=== PATIENT | male | born 1965 | race Caucasian/White ===

== ENCOUNTER 2018-01-24 14:47 | Inpatient (IN) | payer OTHER ==
[~2018-01-24] VITALS: Ht 177.8 cm; Wt 68.0 kg
--- NOTE | 2018-01-24 15:20 | NUR ---
PRE-ADMISSION Pt is a 52 yr old male, AA&Ox4. Pt is presenting himself to [facility] for [place] and Oxycotin use. Pt states of using 200mg PO of [place] prior to admission. Pt is currently intoxicated. No withdrawal is noted at this time. VS are BP125/68, P 71, R 16, O2 96%. Pt denies any pain at the moment. Pt was seen and examined by Dr. Weems. Pt will be admitted onto the 3rd floor.
[2018-01-24 15:23] VITALS: BP 125/68
[2018-01-24] MEDS ORDERED: CELE200C PO (15:55)
[2018-01-24] MEDS ORDERED: ROSU10TA PO (15:56)
[2018-01-24] MEDS ORDERED: MAG HYDROX/AL HYDROX/SIMETH 30 ML LIQUID UDC PO PRN (16:30)
[2018-01-24] MEDS ORDERED: MIRALAX 17 GM POWD.PACK PO PRN (16:30)
[2018-01-24] MEDS ORDERED: ONDANSETRON 4 MG/2 ML VIAL IM PRN (16:30)
[2018-01-24] MEDS ORDERED: ACETAMINOPHEN 325 MG TABLET PO PRN (16:30)
[2018-01-24] MEDS ORDERED: HYDROXYZINE PAMOATE 25 MG CAPSULE PO PRN (16:30)
[2018-01-24] MEDS ORDERED: IBUPROFEN 600 MG TABLET PO PRN (16:30)
[2018-01-24] MEDS ORDERED: MAGNESIUM HYDROXIDE 30 ML LIQUID UDC PO PRN (16:30)
[2018-01-24] MEDS ORDERED: CLONIDINE HCL 0.1 MG TABLET PO PRN (16:30)
[2018-01-24] MEDS ORDERED: ONDANSETRON ODT 4 MG TAB.RAPDIS SL PRN (16:30)
[2018-01-24] MEDS ORDERED: LOPERAMIDE HCL 2 MG CAPSULE PO PRN ×2 (16:30)
[2018-01-24] MEDS ORDERED: DICYCLOMINE HCL 20 MG TABLET PO PRN (16:30)
[2018-01-24] MEDS ORDERED: BUPRENORPHINE HCL 2 MG TAB.SUBL SL PRN (16:30)
[2018-01-24] MEDS ORDERED: PATIENT MAY USE OWN MED- MD OK PO PRN (16:45)
--- NOTE | 2018-01-24 17:38 | NUR ---
ADMISSION NOTE Pt is a 52 yr old male, AA&Ox4. Pt is presenting himself to [facility] for [place] and Oxycotin use. Pt reported euphoria related to ingestion to [place] 200mg PO prior to admission. No s/s of active withdrawal at this time. Respirations even and unlabored. Pt reports previous withdrawal symptoms include anxiety, sweats, hot/cold chills, body aches, diarrhea, and insomnia. Pt states he has history of using cocaine, meth, and ETOH when he was young and became sober from [id number]. Pt is a 23 yr old male, AA&Ox4. pt was admitted on 01/19/18 for Opiate/Benzo w/d and is on 5 day Subutex taper as ordered. Pt states that due to chronic pain related to multiple injuries and having PTSD due to being a [place] caused him to become dependent on opiates. Pt states of having PMH of Hyperlipidemia, Aortic Valve leak, Hernia surgery 3x, and Disc replacement on cervical area. Pt denies any hx of seizures. Pt is on Crestor 10mg PO daily and Celebrex 200mg PO daily. Pt did bring home medication and was reconciled. Pt denies any allergies to medication or food. Pt is full code and follows a regular diet. SUBSTANCE USE : Pt states of first using [place] 5 years ago, he states of using 300mg PO daily. Last use was on 01/24/18 prior to admission, pt states of using 200mg PO. Pt also states of using OxyContin for 8 months, Pt states of using 350mg PO daily. Last use was on 01/23/18 at 0600, pt states of using 150mg PO. Pt also states of using Xanax in the past 2 weeks. Pt states he only used 5x in the 2 week period and used 1/3 of a Xanax bar. Last use was on 01/23/18 at 2100, pt states he used 1/3 of a Xanax bar. Pt states of going to AA/NA meetings but this is his first time in treatment for opiate use. Pt was seen and examined by Dr. Weems. Pt is to start on 4 day Subutex taper on 01/25/18. Pt was educated on medication regimen and plan of care. Pt was able to verbalize understanding. COWS score is not applicable at this time due to pt is intoxicated. Pt was oriented around unit and equipment in room. Safety precautions observed. Will continue to monitor.
--- NOTE | 2018-01-24 19:00 | NUR ---
END OF SHIFT Gave report to RN nurse. Pt is in stable condition and continues to deny any s/s of w/d at this time due to pt was intoxicated prior to admission. COWS score was not applicable at this time. Pt was able to eat 100% of dinner. No PRN's were given. Labs are still pending.
--- NOTE | 2018-01-24 19:30 | NUR ---
START OF SHIFT Received 52 year old male patient. Pt is alert and oriented x4. Pt is noted to be anxious watching TV in room. Per endorsement pt is scheduled to start 4 day Subutex taper tomorrow 01/25/18 for opiate withdrawal. Breathing is even and unlabored, safety measures in place. Will continue to monitor.
[2018-01-24 20:00] VITALS: BP 136/75
[2018-01-24 21:32] LABS: BASOPHILS # (AUTO) 0.1 K/uL (0.0-8.0); BASOPHILS % (AUTO) 1.3 % (0.0-2.0); EOSINOPHILS # (AUTO) 0.2 K/uL (0.0-0.7); EOSINOPHILS % (AUTO) 2.2 % (0.0-7.0); HEMATOCRIT 42.7 % (36.7-47.1); HEMOGLOBIN 14.4 g/dL (12.5-16.3); LYMPHOCYTES # (AUTO) 2.3 K/uL (20.0-40.0); LYMPHOCYTES % (AUTO) 23.1 % (20.5-51.5); MEAN CORPUSCULAR HEMOGLOBIN 29.6 uug (23.8-33.4); MEAN CORPUSCULAR HGB CONC 34 g/dL (32.5-36.3); MEAN CORPUSCULAR VOLUME 88.1 fL (73.0-96.2); MONOCYTES # (AUTO) 0.8 K/uL (2.0-10.0); MONOCYTES % (AUTO) 8.1 % (0.0-11.0); NEUTROPHILS # (AUTO) 6.5 K/uL (1.8-8.9); NEUTROPHILS % (AUTO) 65.3 % (38.5-71.5); PLATELET COUNT (AUTO) 221 K/uL (152-348); RED BLOOD CELL COUNT(AUTO) 4.85 MIL/uL (4.06-5.63)
[2018-01-24 21:36] LABS: ETHANOL < 3 MG/DL (0-0)
[2018-01-24] MEDS: diphenhydrAMINE 50 MG CAPSULE PO PRN (21:38)
[2018-01-24] MEDS: ROSUVASTATIN 10MG PO SCH (21:38)
--- NOTE | 2018-01-24 21:38 | NUR ---
PRN BENADRYL Pt complains of inability to sleep. PRN Benadryl administered as ordered. Breathing even and unlabored, safety measures in place. Will monitor.
[2018-01-24 21:41] LABS: ALANINE AMINOTRANSFERASE 21 U/L (16-63); ALKALINE PHOSPHATASE 73 U/L (50-136); ASPARTATE AMINOTRANSFERASE 12 U/L (15-37); BILIRUBIN,TOTAL 0.3 mg/dL (0.2-1.0); CARBON DIOXIDE 30 mmol/L (21-32); CHLORIDE 103 mmol/L (98-107); CREATININE 1.1 mg/dL (0.6-1.3); GLUCOSE 86 mg/dL (74-106); MAGNESIUM 2.4 mg/dL (1.8-2.4); UREA NITROGEN, BLOOD 20 mg/dL (7-18)
--- NOTE | 2018-01-24 22:38 | NUR ---
PRN REASSESSMENT PRN medication effective. Pt is lying in bed with eyes closed and is asleep. Breathing is even and unlabored, respiration 16. Safety measures in place. Will continue to monitor.
[2018-01-25] VITALS: BP 116/54
[2018-01-25 04:00] VITALS: BP 117/55
--- NOTE | 2018-01-25 07:20 | NUR ---
END OF SHIFT Pt is a 52 year old male patient. Pt remains alert and oriented x4. Pt was noted with anxiety and restlessness during the shift. He is scheduled to start 4 day Subutex taper today (01/25/18) for opiate withdrawal. He received PRN Benadryl. He slept a total of 6 hrs, Intake: 798mL, Void: x3, BM:0, COWS:3. Breathing is even and unlabored, safety measures in place. Endorsed to AM shift.
--- NOTE | 2018-01-25 07:30 | NUR ---
START OF SHIFT Pt is a 52 yr old male, AA&Ox4. Pt was admitted on 01/24/18 for opiate withdrawal and is to start on 4 day Subutex taper as ordered today. Received report from night court magistrate nurse. Pt received Benadryl PRN during the night. Pt states of not being able to sleep well during the night. Pt c/o cold chills and stuffy nose. Pt denies any pain at this time. Pt was encouraged increase fluids for hydration. Safety precautions observed Call light is within reach. Will continue to monitor.
[2018-01-25 08:11] VITALS: BP 120/78
[2018-01-25 08:26] LABS: *AMPHETAMINE, URINE NEGATIVE (NEGATIVE); *BARBITURATE, URINE NEGATIVE (NEGATIVE); *CANNABINOID, URINE NEGATIVE (NEGATIVE); *COCCAINE, URINE NEGATIVE (NEGATIVE); *OPIATE, URINE POSITIVE (NEGATIVE); *PHENCYCLIDINE SCREEN,URINE NEGATIVE (NEGATIVE)
[2018-01-25] MEDS ORDERED: DOCUSATE SODIUM 250 MG CAPSULE PO SCH (09:00)
[2018-01-25] MEDS ORDERED: 4 DAY TAPER BUPRENORPHINE -SERENITY PROTOCOL SL PRN (09:00)
[2018-01-25] MEDS ORDERED: Medication Not On Formulary EA (Rosuvastatin Calcium (Crestor) 1 TAB) PO SCH (09:00)
[2018-01-25] MEDS ORDERED: TUBERCULIN,PURIF.PROT.DERIV. 5 TU/0.1 ML TEST ID ONE (09:00)
--- NOTE | 2018-01-25 09:23 | NUR ---
NSG NOTES Pt began to c/o increase anxiety, generalized body aches 6/10, loose stool and chills. Pt is observed with goose flesh. COWS score was 16. Subutex 4mg SL as scheduled at 0900 was given. Medication yo well. Will continue to monitor.
[2018-01-25] MEDS: MULTIVITAMINS,THERAPEUTIC TABLET PO SCH (09:29)
[2018-01-25] MEDS: BUPRENORPHINE HCL 2 MG TAB.SUBL SL SCH ×3 (09:30→20:49)
[2018-01-25 12:00] VITALS: BP 122/71
[2018-01-25 16:00] VITALS: BP 125/71
--- NOTE | 2018-01-25 18:57 | NUR ---
END OF SHIFT Pt is a 52 yr old male, AA&Ox4. Pt was admitted on 01/24/18 for opiate withdrawal and started on 4 day Subutex taper as ordered. Medication has been yo well. Pt has been cooperative with medication regimen and plan of care. Pt attended group therapy. Pt c/o increase anxiety, cold chills and muscle aches during the day. Pt was noted with runny nose and restless legs. Pt stated of having x1 loose stool. Last COWS score was 14 at 1600. Pt was encouraged to drink plenty of fluids for hydration. No PRNs were given. Safety precautions observed Call light is within reach.
[2018-01-25 20:00] VITALS: BP 130/73
--- NOTE | 2018-01-25 20:00 | NUR ---
START OF SHIFT NOTE RECEIVED REPORT FROM DAY SHIFT NURSE. PATIENT IS A 52 YEAR OLD MALE ADMITTED FOR OPIATE WITHDRAWAL. PATIENT WAS PLACED ON SUBUTEX TAPER, STARTED TODAY. PATIENT DID NOT REQUIRE PRN MEDICATION. LAST . RECEIVED PATIENT IN THE ROOM. PATIENT JUST CAME FROM GROUP. PATIENT UNSHAVEN, REPORTS ANXIETY, FIDGETY, MUSCLE ACHES, BOTH KNEE AND LOWER BACK, SWEATING, RUNNY NOSE AND ABDOMINAL CRAMPING. SAFETY MEASURES IN PLACE. CALL LIGHT IN REACH. WILL CONTINUE TO MONITOR.
[2018-01-25] MEDS: METHOCARBAMOL 750 MG TABLET PO PRN (20:48)
--- NOTE | 2018-01-25 20:48 | NUR ---
PRN BENTYL AND ROBAXIN ADMINISTRATION PATIENT C/O BOTH KNEES AND BACK PAIN. WILL MONITOR FOR EFFECTIVENESS
[2018-01-25] MEDS: ROSUVASTATIN 10MG PO SCH (20:49)
--- NOTE | 2018-01-25 21:48 | NUR ---
PRN JC RE-ASSESSMENT PATIENT IN THE ROOM, WATCHING TV. PATIENT STATES ROME AND HOMER HELPFUL AND EFFECTIVE. NO C/O AT THIS TIME.
[2018-01-25] MEDS: diphenhydrAMINE 50 MG CAPSULE PO PRN (21:55)
--- NOTE | 2018-01-25 21:55 | NUR ---
PRN BENADRYL ADMINISTRATION PATIENT REQUESTS FOR SLEEP AID. WILL MONITOR FOR EFFECTIVENESS
--- NOTE | 2018-01-25 23:30 | NUR ---
PRN BENADRYL RE-ASSESSMENT PATIENT IN BED WITH EYES CLOSED. RESPIRATION EVEN AND UNLABORED. WILL CONTINUE TO MONITOR
--- NOTE | 2018-01-26 | NUR ---
COWS DEFERRED PATIENT SLEEPING. VS REFUSED. RESPIRATION EVEN AND UNLABORED. WILL CONTINUE TO MONITOR.
--- NOTE | 2018-01-26 04:00 | NUR ---
COWS DEFERRED PATIENT SLEEPING. VS REFUSED. RESPIRATION EVEN AND UNLABORED. WILL CONTINUE TO MONITOR.
--- NOTE | 2018-01-26 07:05 | NUR ---
END OF SHIFT NOTE PATIENT SLEPT 6 HOURS. FLUID INTAKE 946 ML. VOIDED X 1. NO BM. MONITORED PATIENT THROUGHOUT SHIFT. PATIENT COMPLIANT WITH MEDICATION AND TREATMENT PLAN. PATIENT WAS ANXIOUS, FIDGETY, MUSCLE ACHES, BOTH KNEE AND LOWER BACK, SWEATING, RUNNY NOSE AND ABDOMINAL CRAMPING BEGINNING OF SHIFT. MEDICATION GIVEN ORDERED, TOLERATED WELL AND NO ADVERSE REACTION. PATIENT WAS GIVEN PRN ROBAXIN AND BENTYL. AT 2349, PATIENT REQUESTED FOR SLEEP AID. PRN BENADRYL GIVEN. SAFETY MEASURES IN PLACE. CALL LIGHT IN REACH. WILL CONTINUE TO MONITOR. LAST COWS 8.
--- NOTE | 2018-01-26 07:16 | NUR ---
Start of shift note; Received report from night nurse. Patient is a 52 year old male admitted on 01/24/18 for Opiate withdrawals. Patient was started on a 4 day Subutex taper. Patient slept for 6 hours. Last COWS is 8 per endorsement. Patient received PRN medications Benadryl, Bentyl, Robaxin all noted to be effective. Patient is AOX4. complaining of muscle aches, anxiety, hot and cold sweats, avoidant to eye contact. Educated patient regarding the importance of compliance to treatment and medication regime, patient verbalized understanding. All safety measures secured. Will continue to monitor patient.
[2018-01-26 08:00] VITALS: BP 114/69
[2018-01-26] MEDS: MULTIVITAMINS,THERAPEUTIC TABLET PO SCH (08:31)
[2018-01-26] MEDS ORDERED: BUPRENORPHINE HCL 2 MG TAB.SUBL SL SCH (09:00)
[2018-01-26 12:00] VITALS: BP 138/75
[2018-01-26] MEDS: BUPRENORPHINE HCL 2 MG TAB.SUBL SL SCH ×2 (15:17→21:28)
[2018-01-26 16:00] VITALS: BP 108/65
--- NOTE | 2018-01-26 18:36 | NUR ---
End of shift note; Patient is AOX4. Patient remained compliant with treatment plan and medication regime. Medications were effective in reducing withdrawal symptoms. Patient participated in group activities and therapies. Patient appears anxious, complaining of muscle aches, diaphoresis, stomach cramps. Patient' s last COWS score is 8 at 1600. All safety measures secured. Met all needs.
--- NOTE | 2018-01-26 19:30 | NUR ---
START OF SHIFT Received 52 year old male patient. Pt is alert and oriented x4. Pt noted with anxiety and restlessness. He complains of generalized body aches. Per endorsement, he did not receive or request PRN medications. Breathing is even and unlabored. Safety measures in place. Will continue to monitor.
[2018-01-26 20:25] VITALS: BP 132/69
[2018-01-26] MEDS: METHOCARBAMOL 750 MG TABLET PO PRN (21:27)
[2018-01-26] MEDS: GABAPENTIN 300 MG CAPSULE PO SCH (21:27)
[2018-01-26] MEDS: diphenhydrAMINE 50 MG CAPSULE PO PRN (21:27)
--- NOTE | 2018-01-26 21:27 | NUR ---
PRN ROBAXIN/BENADRYL Pt complains of body aches 7/10 and inability to sleep. PRN Robaxin and Benadryl administered as ordered. Breathing even and unlabored. Safety measures in place. Will monitor effectiveness.
[2018-01-26] MEDS: CLONIDINE HCL 0.1 MG TABLET PO SCH (21:28)
[2018-01-26] MEDS: ROSUVASTATIN 10MG PO SCH (21:28)
--- NOTE | 2018-01-26 22:27 | NUR ---
PRN REASSESSMENT PRN Robaxin effective. Pt reports decrease in body aches and pain. PRN Benadryl ineffective. Pt still awake, appears drowsy and appears he is ready to sleep soon. Will continue to monitor.
--- NOTE | 2018-01-27 | NUR ---
VITALS REFUSED, COWS DEFERRED 0000 vitals refused. COWS deferred d/t pt lying in bed with eyes closed noted to be asleep. Breathing is even and unlabored. Safety measures in place. Will continue to monitor.
--- NOTE | 2018-01-27 04:00 | NUR ---
VITALS REFUSED, COWS DEFERRED 0400 vitals refused. COWS deferred d/t pt lying in bed with eyes closed noted to be asleep. Breathing is even and unlabored. Safety measures in place. Will continue to monitor.
[2018-01-27 05:06] LABS: HEPATITIS B SURFACE AG Negative (Negative)
--- NOTE | 2018-01-27 07:04 | NUR ---
END OF SHIFT Pt is a 52 year old male patient. Pt remains alert and oriented x4. Pt was noted with anxiety and restlessness during the shift. He reports he has difficulty falling asleep and received PRN Benadryl and Robaxin. He slept a total of 6 hrs, Intake: 1300mL, void: x3, BM:0, COWS:8. Breathing is even and unlabored. Safety measures in place. Endorsed to AM shift.
--- NOTE | 2018-01-27 07:17 | NUR ---
START OF SHIFT NOTE Patient is 52 year old male admitted for Opioid withdrawal. Patient continues with 4 days Subutex taper tolerating well. Per endorsement patient was given PRN Benadryl, Robaxin effective per night nurse, slept for 6 hours and last COWS score was-8. Patient received alert awake, complaining of muscle spasms, anxious, agitated, runny nose. Patient has thrown clothes on the floor, empty bottles on the floor. Educated patient with plan of the day and importance of compliant to medication and treatment with good verbal understanding. Safety measures in place. Will cont with plan of care.
[2018-01-27 08:00] VITALS: BP 105/62
[2018-01-27] MEDS: GABAPENTIN 300 MG CAPSULE PO SCH ×3 (08:17→21:13)
[2018-01-27] MEDS: BUPRENORPHINE HCL 2 MG TAB.SUBL SL SCH ×3 (08:17→21:13)
[2018-01-27] MEDS: CLONIDINE HCL 0.1 MG TABLET PO SCH ×2 (08:18→21:13)
[2018-01-27] MEDS: LIDOCAINE 5% PATCH TD SCH (12:01)
[2018-01-27 12:13] VITALS: BP 98/59
[2018-01-27 16:00] VITALS: BP 104/62
--- NOTE | 2018-01-27 19:05 | NUR ---
Start of Shift Patient Received. Patient is noted in the activities room participating in a group meeting. Per endorsement, patient continues on a modified 4 day Subutex taper. Patient is compliant with medications and is tolerating plan of care well. Patient received a new order for a lidocaine patch for chronic back pain with patch noted to be effective. Last noted COWS 8. All needs attended to promptly. Will continue plan of care as ordered.
--- NOTE | 2018-01-27 19:10 | NUR ---
END OF SHIFT NOTE Patient is alert awake oriented. Patient presented with anxiety, agitation, worried, labile facial expression. Patient continues with Subutex taper tolerating well. During shift patient did not requires and requested and PRN medication. Vital signs WNL. Skin intact warm and dry to touch. Encourage pt to develop coping skills and utilization of non pharmacological intervention. Patient was encouraged to participates in groups therapy session. Encourage diversional activities to alleviate anxiety. Patient denies any SI/HI. Safety measures in place. Patient endorsed to night nurse in stable condition.
[2018-01-27 20:20] VITALS: BP 106/74
[2018-01-27] MEDS: diphenhydrAMINE 50 MG CAPSULE PO PRN (21:13)
[2018-01-27] MEDS: METHOCARBAMOL 750 MG TABLET PO PRN (21:13)
[2018-01-27] MEDS: ROSUVASTATIN 10MG PO SCH (21:13)
--- NOTE | 2018-01-27 21:15 | NUR ---
PRN Medication Administration Patient is noted verbalizing increased muscle spasms to upper back area and inability of falling asleep. PRN Robaxin and Benadryl administered with routine medications. Will continue to monitor.
--- NOTE | 2018-01-27 22:15 | NUR ---
PRN Medication Reassessment patient is noted in bed sleeping. Breathing even and non labored. No signs of facial grimacing. No restlessness noted. PRN Robaxin and PRN Benadryl noted to be effective. Will continue to monitor.
[2018-01-28 00:06] VITALS: BP 101/69
[2018-01-28 04:15] VITALS: BP 104/79
--- NOTE | 2018-01-28 07:04 | NUR ---
End of Shift Patient is noted awake in bed, alert and oriented. Breathing even and non labored. He continues on a modified 4 day Subutex taper. Patient is noted to be compliant with medications, group meetings, social activities, and is tolerating plan of care well. Patient was noted verbalizing increased muscle spasms and inability of falling asleep. PRN Benadryl and PRN Robaxin administered with routine medications. PRN Medications noted to be effective. Last noted COWS 8. Patient slept a total of 7 hours. All needs attended to promptly. Will endorse to continue plan of care as ordered.
--- NOTE | 2018-01-28 07:45 | NUR ---
START OF SHIFT Endorse rcvd from ongoing nurse, client is pacing in the hallway, he avoids eye contact, a/o x 4, he presents with anxious mood, flat affect, dark circles under eyes, dry lips, tremors felt not observed, and moist skin. He reports decrease appetite, restless legs, feelings of despair, and fatigue. Client denies any SI/HI. Encourage client to attend group therapy for skills to maintain sober. Encourage client to increase PO fluid as tolerated to maintain rehydration and facilitate detox. Client had an uneventful night. Last of 4 day Subutex taper, tolerating well. Last COWS 8 @ 1999. Call light within reach. [place] precautions rendered.
[2018-01-28 08:00] VITALS: BP 110/75
[2018-01-28] MEDS: CLONIDINE HCL 0.1 MG TABLET PO SCH ×2 (08:17→20:31)
[2018-01-28] MEDS: GABAPENTIN 300 MG CAPSULE PO SCH ×3 (08:17→20:31)
[2018-01-28] MEDS: LIDOCAINE 5% PATCH TD SCH (08:17)
[2018-01-28] MEDS ORDERED: BUPRENORPHINE HCL 2 MG TAB.SUBL SL SCH (09:00)
[2018-01-28 12:00] VITALS: BP 116/67
[2018-01-28] MEDS ORDERED: DICY20TA28 PO (14:52)
[2018-01-28] MEDS ORDERED: GABA-534 PO (14:52)
[2018-01-28] MEDS ORDERED: DIPH50CA37 PO (14:52)
[2018-01-28] MEDS ORDERED: LIDO30AD10 TD (14:52)
[2018-01-28] MEDS ORDERED: CLON0.1T14 PO (14:52)
[2018-01-28] MEDS ORDERED: HYDR-3895 PO (14:52)
[2018-01-28] MEDS ORDERED: IBUP-1955 PO (14:52)
[2018-01-28] MEDS ORDERED: METH-406 PO (14:52)
[2018-01-28 16:59] VITALS: BP 96/59
--- NOTE | 2018-01-28 17:10 | NUR ---
Therapist prompted client to attend the next group therapy sessions. Client agreed to attend the next group.
--- NOTE | 2018-01-28 19:11 | NUR ---
END OF SHIFT Endorsed client to incoming nurse, client is in room, he is a/o x 4, client continues to present with anxious mood, flat affect, tremors felt not observed, and moist skin. He reports decrease appetite, restless legs, feelings of despair, and fatigue. Client completed 4 day Subutex taper. Client is schedule for discharge tomorrow to [facility]. Client is compliant with 2/3 of group therapy. Client consumed ~ 50 % of meal. Adequate PO fluid intake 2950mL, void x 4 , stool x1. Last COWS 7 @ 1600. Call light within reach.
--- NOTE | 2018-01-28 19:30 | NUR ---
START OF SHIFT Pt is a 52 y/o male admitted on 01/24/18 for opiate withdrawal. Pt finished a 4 day Subutex taper today and is scheduled to be d/c tomorrow. Per day shift nurse, last COWS 7 and no PRNs administered. Lidocaine patch on lower back to be removed tonight. Upon assessment pt presents with anxiety, difficulty sleeping, lower back pain and flat affect. Medications due. Safety measures in place. Call light within reach. Will continue to monitor.
[2018-01-28 20:00] VITALS: BP 104/63
[2018-01-28] MEDS: ROSUVASTATIN 10MG PO SCH (20:31)
[2018-01-28] MEDS: diphenhydrAMINE 50 MG CAPSULE PO PRN (20:31)
--- NOTE | 2018-01-28 20:31 | NUR ---
SHAYY NELSON ADMINISTERED Pt requests sleep aid for difficulty falling asleep. Safety measures in place. Call light within reach. Will continue to monitor.
--- NOTE | 2018-01-28 21:31 | NUR ---
PRN BENADRYL REASSESSMENT Pt laying in bed with eyes closed, medication noted effective. Respirations even and unlabored. Safety measures in place. Call light within reach. Will continue to monitor.
--- NOTE | 2018-01-29 | NUR ---
COWS DEFERRED AND VITALS REFUSED Pt laying in bed with eyes closed, COWS deferred, to be assessed when pt is awake per orders. Vitals refused. Safety measures in place. Call light within reach. Will continue to monitor.
--- NOTE | 2018-01-29 07:04 | NUR ---
END OF SHIFT Pt is a 52 y/o male admitted on 01/24/18 for opiate withdrawal. Pt finished a 4 day Subutex taper yesterday and is scheduled to be d/c today. Pt presented with anxiety, difficulty sleeping, lower back pain and flat affect. Scheduled medications and PRN Benadryl administered, effective in S/S of withdrawal AEB COWS 3 lowered to COWS 2. Pt slept 7 hours. Intake 755 ml, void x 1, stool x 0. Safety measures in place. Pts needs have been met. Endorsed to day shift nurse.
--- NOTE | 2018-01-29 07:30 | NUR ---
START OF SHIFT Endorse rcvd from ongoing nurse, client is in room, he is a/o x 4 he presents with anxious mood, flat affect. He stated, "I am a little anxious about leaving this place, but I think I am ready and I know what I have to do now, so I do not take pills, thank you all for your help, I could not have done it without this program." Client denies any SI/HI. Client is schedule for discharge to [facility] this am. Client completed 4 day Subutex taper, with no adverse side effects. Last COWS 2 @ 0500. PRN Benadryl 50mg PO for inability to sleep, he slept 7 hrs. Call light within reach. [place] precautions rendered.
[2018-01-29 08:07] VITALS: BP 109/72
[2018-01-29 08:17] VITALS: BP 109/72
[2018-01-29] MEDS: LIDOCAINE 5% PATCH TD SCH (08:17)
[2018-01-29] MEDS: CLONIDINE HCL 0.1 MG TABLET PO SCH (08:17)
[2018-01-29] MEDS: GABAPENTIN 300 MG CAPSULE PO SCH (08:17)
--- NOTE | 2018-01-29 09:35 | NUR ---
Discharge note Pt was admitted for opiate withdrawal. Client has a recent COWS of 3. Client VS are WNL. Client LBM was 01/29/18. Client denies any SI/HI. Client verbalized his understanding of the discharge instructions. Client has no complaints at this time. Client discharge instructions, medications and all belongings returned to him. All needs addressed at this time. Client ambulated off of unit, he left facility via [facility] for [facility].
== END 2018-01-29 09:30 | disposition other institution (70) | DRG 895 ==
LOC: SRC 14:47
PROVIDERS: ADMIT Internal Medicine; ATTEND Internal Medicine
PROC: HZ2ZZZZ Detoxification Services for Substance Abuse Treatment (ICD-10-PCS; principal; 2018-01-24)
PROC: HZ41ZZZ Group Counseling for Substance Abuse Treatment, Behavioral (ICD-10-PCS; 2018-01-25)
PROC: HZ31ZZZ Individual Counseling for Substance Abuse Treatment, Behavioral (ICD-10-PCS; 2018-01-27)
DX: F11.23 Opioid dependence with withdrawal (principal); E78.5 Hyperlipidemia, unspecified; Z82.49 Family history of ischemic heart disease and other diseases of the circulatory system; Z80.0 Family history of malignant neoplasm of digestive organs; F17.210 Nicotine dependence, cigarettes, uncomplicated; F41.9 Anxiety disorder, unspecified; M50.10 Cervical disc disorder with radiculopathy, unspecified cervical region; E86.0 Dehydration; F10.11 Alcohol abuse, in remission; R79.89 Other specified abnormal findings of blood chemistry
CPT/HCPCS: 36415; 70030-TC; 80307; 80361; 83735; 85025; 86580; 86592; 86705; 86803; 87340; 87806; A4663; G0480; Q0163